=== PATIENT | female | born 2000 | race Caucasian/White ===

== ENCOUNTER → 2021-08-21 13:30 | Observation (INO) ==
[2021-08-21 12:41] LABS: Bacteria,Urine Few per hpf (None-Few); Bilirubin,Urine Negative (Negative); Blood,Urine Negative (Negative); Clarity,Urine Clear (Clear); Color,Urine Colorless (Yellow); Glucose,Urine (UA) Normal (Normal); Ketones,Urine Negative (Negative); Leukocyte Esterase,Urine Trace (Negative); Mucus,Urine Few per lpf (None-Few); Nitrite,Urine Negative (Negative); Protein,Urine Negative (Neg-Trace); RBC,Urine 0-3 per hpf (0-3); Specific Gravity,Urine 1.005 (1.010-1.025); Squamous Epithelial Cell,Urine Moderate per hpf (None-Few); Urobilinogen,Urine Normal (Normal)
== END | disposition home or self-care (01) ==
LOC: 1NENULAB
PROVIDERS: ADMIT Advanced Practice Midwife; ATTEND Advanced Practice Midwife

== ENCOUNTER → 2021-09-08 16:21 | Observation (INO) ==
[2021-09-08 12:42] LABS: Bacteria,Urine Few per hpf (None-Few); Bilirubin,Urine Negative (Negative); Blood,Urine Negative (Negative); Clarity,Urine Clear (Clear); Color,Urine Light-Yellow (Yellow); Glucose,Urine (UA) Normal (Normal); Hyaline Casts,Urine Few per lpf (None Seen); Ketones,Urine Negative (Negative); Leukocyte Esterase,Urine Trace (Negative); Mucus,Urine Few per lpf (None-Few); Nitrite,Urine Negative (Negative); Protein,Urine Negative (Neg-Trace); RBC,Urine 0-3 per hpf (0-3); Squamous Epithelial Cell,Urine Moderate per hpf (None-Few); Urobilinogen,Urine Normal (Normal); WBC,Urine 0-3 per hpf (0-3)
[~2021-09-08 16:21] MED LIST: Ondansetron 4 MG/2 ML VIAL IVP ONE; Ringers Solution, Lactated 1,000 ML IVC SCH
== END | disposition home or self-care (01) ==
LOC: 1NENULAB
PROVIDERS: ADMIT Advanced Practice Midwife; ATTEND Advanced Practice Midwife

== ENCOUNTER 2021-10-09 05:05 | Inpatient (IN) ==
[2021-10-09] MEDS: *HR* Nalbuphine 10 MG/ML AMPUL IV PRN ×2 (03:42→05:33)
[2021-10-09 04:09] LABS: Basophils # 0.1 K/mcL (0.0-0.2); Basophils % 0.3 %; Eosinophils # 0.2 K/mcL (0.0-0.6); Hematocrit 38.2 % (35.3-44.9); Immature Granulocytes % 1.2 % (0-4); Lymphocytes # 3.7 K/mcL (0.6-4.6); Lymphocytes % 20.3 %; Mean Corpuscular Hemoglobin 31.5 pg (28.0-33.3); Mean Corpuscular Volume 92.5 fL (83.0-100.0); Mean Platelet Volume 9.9 fL (9.4-12.4); Monocytes # 1.2 K/mcL (0.0-1.3); Monocytes % 6.6 %; Neutrophils # 12.8 K/mcL (1.6-8.9); Platelet Count 380 K/mcL (140-400); Red Blood Count 4.13 M/mcL (3.82-4.97); Red Cell Distribution Width 12.3 % (11.5-14.5); Segmented Neutrophils % 70.6 %; White Blood Count 18.1 K/mcL (4.3-11.1)
[2021-10-09 04:17] LABS: Amphetamine Screen,Urine Negative ng/mL (Cutoff=1000); Barbiturate Screen,Urine Negative ng/mL (Cutoff=200); Benzodiazepines Screen,Urine Negative ng/mL (Cutoff=200); Cannabinoid Screen,Urine Negative ng/mL (Cutoff = 50); Cocaine Screen,Urine Negative ng/mL (Cutoff= 300); Opiate Screen,Urine Negative ng/mL (Cutoff=300); Phencyclidine Screen,Urine Negative ng/mL (Cutoff=25)
[2021-10-09 04:33] LABS: Influenza A PCR Negative (Negative); Influenza B PCR Negative (Negative); Resp. Syncytial Virus PCR Negative (Negative)
[2021-10-09 04:35] LABS: SARS-CoV-2 by PCR (In House) Negative (Negative)
[~2021-10-09 05:05] MED LIST changes: +*HR* Nalbuphine 10 MG/ML AMPUL ONE; +Famotidine 20 MG/2 ML VIAL IVP PRN; +Lidocaine 1% 20 ML MDV INFILT PRN; +Metoclopramide 10 MG/2 ML VIAL IVP PRN; +Naloxone 0.4 MG/ML INJ IVP PRN; -Ondansetron 4 MG/2 ML VIAL IVP ONE; +Ringers Solution, Lactated 1,000 ML ONE
[2021-10-09] MEDS ORDERED: Oxytocin 30 UNIT/503 ML BAG IVC ONE (07:51)
[2021-10-09] MEDS ORDERED: Ondansetron ODT 4 MG TAB.RAPDIS SL PRN (12:02)
[2021-10-09] MEDS ORDERED: Oxytocin 30 UNIT/503 ML BAG IVC SCH (12:02)
[2021-10-09] MEDS ORDERED: Lanolin 7 G OINT...G. TP PRN (12:02)
[2021-10-09] MEDS ORDERED: Benzocaine/Menthol 56 GM AEROSOL SPRAY TP PRN (12:02)
[2021-10-09] MEDS: Acetaminophen 325 MG TABLET PO SCH (14:40)
[2021-10-09] MEDS: Ibuprofen 600 MG TABLET PO SCH ×2 (14:40→19:58)
[2021-10-10] MEDS: Ibuprofen 600 MG TABLET PO SCH (05:47)
[2021-10-10] MEDS: Acetaminophen 325 MG TABLET PO SCH (05:47)
[2021-10-10 07:36] VITALS: BP 87/52; O2SAT 98
[2021-10-10] MEDS ORDERED: Prenatal Vit/FA 1 EACH TABLET PO SCH (09:00)
[2021-10-10 09:44] VITALS: PULSE 130; TEMP 98.6
== END 2021-10-10 13:37 | disposition home or self-care (01) | DRG 807 ==
LOC: 1NENULAB → 1NENUOBS 13:37
PROVIDERS: ADMIT Registered Nurse; ATTEND Registered Nurse